=== PATIENT | female | born 1945 | race Caucasian/White ===

== ENCOUNTER → 2017-03-30 | Outpatient (REF) ==
[~2017-03-30] MED LIST: ASPIRIN 81M81 MG/TA2 PO; IBU600 MG PO; LIPITOR 10MG10 MG PO; MAXZIDE-25MG TA1 TAB PO; MULTI VITAMINS1 TAB PO; PEPCID 20MG TAB20 MG PO; TENORMIN100 MG PO
== END ==
LOC: ZLAB.WCH 20:10
DX: Z01.89 Encounter for other specified special examinations (principal)

== ENCOUNTER 2017-04-18 14:01 | Outpatient (CLI) | payer MEDICARE, OTHER ==
[2017-04-18 14:23] VITALS: BP 129/59; PULSE 64; TEMP 98
== END 2017-04-18 15:59 | disposition home or self-care (01) ==
LOC: EUO 14:01
DX: M81.0 Age-related osteoporosis without current pathological fracture (principal)
CPT/HCPCS: J3489

== ENCOUNTER → 2017-06-29 | Outpatient (REF) | LOC: ZLAB.WCH 10:22 | DX: Z01.89 Encounter for other specified special examinations (principal) ==

== ENCOUNTER → 2017-08-10 | Outpatient (CLI) | payer MEDICARE, BC | LOC: COL.VAS 10:54 | DX: I34.8 Other nonrheumatic mitral valve disorders (principal) ==

== ENCOUNTER → 2018-04-10 | Outpatient (REF) | LOC: ZLAB.WCH 14:27 | DX: Z01.89 Encounter for other specified special examinations (principal) ==

== ENCOUNTER → 2018-05-16 | Outpatient (CLI) | payer MEDICARE, BC ==
[~2018-05-16] VITALS: Ht 162.6 cm; Wt 116.6 kg
[~2018-05-16] MED LIST changes: +NORCO 325 MG-7.1 TAB PO; +ZYRTEC 10MG10 MG PO; +[UNRECOGNIZED DRUG - OTHER]
[2018-05-16 11:04] VITALS: BP 133/72; PULSE 56; TEMP 98.5
== END ==
LOC: EUO 05-14 13:00
DX: M81.0 Age-related osteoporosis without current pathological fracture (principal)
CPT/HCPCS: J3489

== ENCOUNTER 2020-12-21 10:11 | Outpatient (RCR) | payer MEDICARE, BC | END 2021-03-21 | disposition still patient (30) | LOC: MKS.ESL.PT | DX: R60.0 Localized edema (principal) ==

== ENCOUNTER 2021-05-28 10:00 | Outpatient (RCR) | payer MEDICARE, BC | END 2021-08-01 | disposition home or self-care (01) | LOC: MKS.ESL.PT | DX: I89.0 Lymphedema, not elsewhere classified (principal) ==